=== PATIENT | male | born 1980 | race Caucasian/White ===

== ENCOUNTER 2016-12-14 11:04 | Emergency (ER) | payer OTHER ==
[2016-12-14 11:16] VITALS: TEMP 97.9
--- NOTE | 2016-12-14 12:07 | EDPHY ---
H & P Time Seen by Provider: 12/14/16 11:48 HPI/ROS: CHIEF COMPLAINT: Chest pain HISTORY OF PRESENT ILLNESS: The patient is a 36 year old male presenting with sudden onset of chest pain at 10am. The pain originated in the right side of his chest and radiated through to his back. At the time he felt it was difficult to walk with associated nausea. The patient also complains of difficulty swallowing. He states it feels like he has peanut butter in his throat. The patient ate breakfast 45 minutes prior to onset of symptoms. He took antacids which seemed to improve his symptoms. His chest discomfort has now resolved, but he continues to feel nauseous. The patient has experienced reflux in the past and states his pain felt more severe than usual reflux pain. REVIEW OF SYSTEMS: Aside from elements discussed in the HPI, a comprehensive 10-point review of systems was reviewed and is negative. Past Medical/Surgical History: Denies. Social History: . and child at bedside. Smoking Status: Never smoked Physical Exam: General Appearance: Alert, no distress Eyes: Pupils equal and round, no conjunctival pallor or injection ENT, Mouth: Mucous membranes moist Neck: Normal inspection Respiratory: Lungs are clear to auscultation Cardiovascular: Regular rate and rhythm Gastrointestinal: Abdomen is soft and non-tender Neurological: A&O, nonfocal, normal gait Skin: Warm and dry, no rash Extremities: Nontender, no pedal edema Psychiatric: Mood and affect normal Constitutional: Initial Vital Signs Temperature (C) 36.6 C 12/14/16 11:14 Heart Rate 59 L 12/14/16 11:14 Respiratory Rate 18 12/14/16 11:14 Blood Pressure 148/75 H 12/14/16 11:14 O2 Sat (%) 99 12/14/16 11:14 O2 Delivery Mode Room Air Allergies/Adverse Reactions: Penicillins Allergy (Unknown, Verified 12/14/16 11:13) Home Medications: Medication Instructions Recorded Ondansetron Odt [Zofran Odt 4 mg 4 mg PO Q4 PRN #6 tab 12/14/16 (*)] Pantoprazole Sodium [Protonix 40mg 40 mg PO DAILY #20 tab 12/14/16 (*)] Medical Decision Making - Diagnostics EKG Interpretation: The 12 lead EKG was interpreted by myself. See hard copy and/or "tracemaster" electronic copy for interpretation: Sinus rhythm, first degree AV block. Imaging: Study: X-ray of the chest was obtained. Results: No acute disease. Images were interpreted by the radiologist, Dr. Buckley. I viewed the images myself on the PACS system. ED Course/Re-evaluation: Sx c/w acute esophagitis. GI cocktail given with complete relief pain. Protonix 40 mg orally given. No evidence of cardio pulmonary etiology of symptoms. Safe and stable for discharge. Differential Diagnosis: Differential diagnosis includes though it is not limited to pneumonia, pneumothorax, pulmonary embolism, aortic dissection, pericarditis, acute coronary syndrome. - Data Points Laboratory Results: Laboratory Results 12/14/16 11:42 12/14/16 11:42 Medications Given: Discontinued Medications Miscellaneous Medication (Gi Cocktail) 55 ml PO EDNOW ONE Stop: 12/14/16 12:23 Last Admin: 12/14/16 12:28 Dose: 55 ml Ondansetron HCl (Zofran) 4 mg IVP EDNOW ONE Stop: 12/14/16 12:23 Last Admin: 12/14/16 12:28 Dose: 4 mg Pantoprazole Sodium (Protonix) 40 mg PO EDNOW ONE Stop: 12/14/16 13:23 Last Admin: 12/14/16 13:33 Dose: 40 mg Departure - Departure Disposition: Home, Routine, Self-Care Clinical Impression: Esophagitis Condition: Good Instructions: Esophagitis (ED) Additional Instructions: Take Mylanta or Maalox before meals and at bedtime. Take Protonix as prescribed. Followup with your primary care physician if symptoms persist. Referrals: Katrina Spivey PA [Primary Care Provider] - As per Instructions Prescriptions: Pantoprazole Sodium [Protonix 40mg (*)] 40 mg PO DAILY #20 tab Ondansetron Odt [Zofran Odt 4 mg (*)] 4 mg PO Q4 PRN #6 tab PRN Reason: Nausea Report Scribed for: Cheryl Cardoza Report Scribed by: Malorie Norwood Date of Report: 12/14/16 Time of Report: 12:06 Physician Review and Approval Statement: 12/14/16 12:06 Portions of this note were transcribed by a medical services coordinator. I personally performed the history, physical exam, and medical decision-making; and confirmed the accuracy of the information in the transcribed note.
[2016-12-14] MEDS ORDERED: MAALOX/LIDO/HYOSC GI COCKTAIL 55 ML BOTTLE PO ONE (12:22)
[2016-12-14] MEDS ORDERED: ONDANSETRON 4 MG/2 ML VIAL IVP ONE (12:22)
[2016-12-14 12:30] VITALS: O2SAT 98
--- NOTE | 2016-12-14 12:49 | DX ---
PA and Lateral Chest December 14, 2016 Indication: Chest pain. No known trauma. Findings: The lungs are well aerated and clear. No pneumothorax, consolidation, or effusion. Heart si ze normal. Minimal deformity of distal right clavicle is likely old. Impression: Clear lungs. No acute process.
[2016-12-14 13:00] LABS: % IMMATURE GRANULYOCYTES 0.3 % (0.0-1.1); ABSOLUTE IMMATURE GRANULOCYTES 0.02 10^3/uL (0.00-0.10); ADD DIFF? NO; ADD MORPH? NO; ADD SCAN? NO; ATYPICAL LYMPHOCYTE FLAG 10 (0-99); FRAGMENT RBC FLAG 0 (0-99); HEMOGLOBIN 16.7 g/dL (13.7-17.5); LEFT SHIFT FLG 0 (0-99); LIPEMIA HEMOLYSIS FLAG 90 (0-99); MEAN CELL HEMOGLOBIN 30.4 pg (27.9-34.1); MEAN CELL HEMOGLOBIN CONCENTR. 34.8 g/dL (32.4-36.7); MEAN CELL VOLUME 87.3 fL (81.5-99.8); MEAN PLATELET VOLUME 9.2 fL (8.7-11.7); PLATELET CLUMPS FLAG 0 (0-99); PLATELET COUNT 250 10^3/uL (150-400)
[2016-12-14 13:13] LABS: ALANINE AMINOTRANSFERASE 36 IU/L (21-72); ALBUMIN 4.2 g/dL (3.5-5.0); ALKALINE PHOSPHATASE 83 IU/L (38-126); ANION GAP 13 mEq/L (8-16); ASPARTATE AMINOTRANSFERASE 33 IU/L (17-59); BILIRUBIN-CONJUGATED 0.2 mg/dL (0.0-0.5); BILIRUBIN-UNCONJUGATED 0.8 mg/dL (0.0-1.1); CALCIUM 9.5 mg/dL (8.5-10.4); CARBON DIOXIDE 27 mEq/l (22-31); CHLORIDE 100 mEq/L (97-110); CREATININE 0.9 mg/dL (0.7-1.3); GLOMERULAR FILTRATION RATE > 60; GLUCOSE 82 mg/dL (70-100); POTASSIUM 4.3 mEq/L (3.5-5.2); SODIUM 140 mEq/L (134-144); TOTAL PROTEIN 7.5 g/dL (6.3-8.2)
[2016-12-14] MEDS ORDERED: PANTOPRAZOLE SODIUM 40 MG TAB PO ONE (13:22)
[2016-12-14 13:35] VITALS: BP 110/73; PULSE 64; RESP 16
--- NOTE | 2016-12-15 07:38 | CPEKG ---
Heart Rate: 62 RR Interval: 968 P-R Interval: 216 QRSD Interval: 96 QT Interval: 384 QTC Interval: 390 P Towner: 51 QRS Towner: 84 T Wave Towner: 43 EKG Severity - ABNORMAL ECG - EKG Impression: SINUS RHYTHM EKG Impression: FIRST DEGREE AV BLOCK Electronically Signed By: Cheryl Cardoza 15-Dec-2016 23:11:20
== END 2016-12-14 13:34 | disposition home or self-care (01) ==
DX: K20.9 Esophagitis, unspecified (principal)
CPT/HCPCS: 96374; J2405

== ENCOUNTER → 2019-05-14 | Outpatient (CLI) | payer OTHER | LOC: BMCIMAGING 15:51 ==